=== PATIENT | female | born 1970 | race Caucasian/White ===

== ENCOUNTER 2021-06-28 10:19 | Emergency (ER) | payer MEDICARE, MEDICAID ==
[~2021-06-28] VITALS: Ht 177.8 cm; Wt 182.3 kg
[2021-06-28] MEDS ORDERED: CYCLOBENZAPRINE10 MG PO (10:40)
[2021-06-28] MEDS ORDERED: COREG6.25 MG PO (10:41)
[2021-06-28] MEDS ORDERED: WARFARIN SODIUM2 MG PO (10:41)
[2021-06-28] MEDS ORDERED: PERCOCET 5-3251 EACH PO (10:41)
[2021-06-28] MEDS ORDERED: LEVOTHYROXINE200 MC2 PO (10:42)
[2021-06-28] MEDS ORDERED: PRAVASTATIN SOD10 MG PO (10:42)
[2021-06-28] MEDS ORDERED: PROTONIX40 MG PO (10:42)
[2021-06-28] MEDS ORDERED: SERTRALINE HCL25 MG PO (10:43)
== END 2021-06-28 13:37 | disposition home or self-care (01) ==
LOC: ED 10:19
DX: U07.1 COVID-19 (principal); Z23 Encounter for immunization; E11.9 Type 2 diabetes mellitus without complications; E03.9 Hypothyroidism, unspecified; J45.909 Unspecified asthma, uncomplicated; E66.9 Obesity, unspecified; Z88.0 Allergy status to penicillin; Z91.012 Allergy to eggs; Z79.899 Other long term (current) drug therapy; Z79.01 Long term (current) use of anticoagulants
CPT/HCPCS: 99283-25; M0247

== ENCOUNTER 2021-09-25 12:14 | Emergency (ER) | payer MEDICARE, MEDICAID ==
[~2021-09-25] VITALS: Ht 177.8 cm; Wt 182.7 kg
[~2021-09-25 12:14] MED LIST: COREG6.25 MG PO; CYCLOBENZAPRINE10 MG PO; LEVOTHYROXINE200 MC2 PO; PERCOCET 5-3251 EACH PO; PRAVASTATIN SOD10 MG PO; PROTONIX40 MG PO; SERTRALINE HCL25 MG PO; WARFARIN SODIUM2 MG PO
--- OUTSIDE RECORDS SUMMARY | 2021-09-25 12:18 | XMS ---
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 Antonio VISIT COUNT (12 MO.) 2 [facility] TOTAL 2 NOTE: Visits indicate total known visits. 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
[2021-09-25] MEDS ORDERED: TOUJEO SOL300 UNIT/1 SUB-Q (12:41)
[2021-09-25] MEDS ORDERED: NOVOLIN R100 UNIT/1 INJ (12:42)
[2021-09-25] MEDS ORDERED: VICTOZA 2-0.6 MG/0.1 SUB-Q (12:42)
[2021-09-25] MEDS ORDERED: PROBIOTIC1 EAC2 PO (12:43)
[2021-09-25] MEDS ORDERED: LOMOTIL TABLET1 EACH PO (16:46)
[2021-09-25] MEDS ORDERED: ONDANSETRON ODT8 MG PO (16:48)
== END 2021-09-25 17:33 | disposition home or self-care (01) ==
LOC: ED 12:14
DX: K52.9 Noninfective gastroenteritis and colitis, unspecified (principal); E11.9 Type 2 diabetes mellitus without complications; E03.9 Hypothyroidism, unspecified; E05.90 Thyrotoxicosis, unspecified without thyrotoxic crisis or storm; J45.909 Unspecified asthma, uncomplicated; E66.9 Obesity, unspecified; Z85.850 Personal history of malignant neoplasm of thyroid; M81.0 Age-related osteoporosis without current pathological fracture; Z88.0 Allergy status to penicillin; Z91.012 Allergy to eggs; Z91.013 Allergy to seafood; Z79.01 Long term (current) use of anticoagulants; Z79.891 Long term (current) use of opiate analgesic; Z79.899 Other long term (current) drug therapy; Z79.4 Long term (current) use of insulin
CPT/HCPCS: 36415; 80053; 81001; 85025; 85610; 87045; 87493; 96374; 99284-25; J2405; J7030